=== PATIENT | male | born 1995 ===

== ENCOUNTER 2016-10-21 11:27 | Day surgery (SDC) | payer BC ==
--- NOTE | ~2016-10-21 | OP ---
Record Of Operation [facility] [address] [place]. [address] NAME: VEE ARELLANO : 89 STATUS : REG [facility]#: [id number] AGE: 21 ADM/REG DATE : 10/21/16 MR#: [id number] REPORT SERV DATE: 10/21/16 DICTATED BY: ERIK GRIFFIN III DATE: 10/21/16 REPORT STATUS : Draft TRANSCRIBED BY: MODL DATE: 10/21/16 DATE OF PROCEDURE: 10/21/2016 PREOPERATIVE DIAGNOSIS: Displaced bucket-handle tear, medial meniscus, right knee. POSTOPERATIVE DIAGNOSIS: Displaced bucket-handle tear, medial meniscus, right knee. SURGICAL PROCEDURE PERFORMED: Arthroscopic repair of displaced bucket-handle tear, medial meniscus, right knee using the Omnispan suture anchor x2. SURGEON: Erik Griffin M.D. FLAME BURNER: Erik Lopez. ANESTHESIA: General. ANTIBIOTICS: Ancef 2 g. COMPLICATIONS: None. TOURNIQUET TIME: 31 minutes. PROCEDURE IN DETAIL: The patient was brought to the operative room, placed on the table in supine position. And general anesthesia was induced. Ancef 2 g was administered intravenously in the preop holding area. Pneumatic tourniquet was applied to right upper thigh along with the arthroscopic leg wisdom. Right lower extremity was prepped and draped in the usual sterile fashion. It was exsanguinated with a 6-inch Esmarch. Tourniquet was inflated to 350 mmHg. Assuring good anesthesia, a standard anterolateral portal was provided. The arthroscope was inserted. The knee was inflated with sterile normal saline by means of the arthroscopic pump. Suprapatellar pouch was visualized, it was free of any loose bodies. Patellofemoral joint was in pristine condition. Medial and lateral gutters were normal. The intercondylar notch revealed a displaced bucket-handle tear of the medial meniscus within the intercondylar notch in line anterior to the medial femoral condyle. Abundant fat pad was debrided through a standard anteromedial portal with a 4.5 shaver. The lateral compartment revealed normal lateral meniscus, lateral femoral condyle, and lateral tibial plateau. Meniscus probe was used to reduce the displaced bucket-handle tear posterior to the medial femoral condyle. The reduction looked anatomic and very healthy, and it was elected to repair the torn meniscus. A 12 degree Omnispan was used to deploy two anchors in the posterior horn of the medial meniscus, and this was tightened and then cut with the Omnispan suture cutter. The arthroscope was then placed in the anteromedial portal and a second Omnispan was placed to the anterolateral portal in the mid one-third of the medial meniscus. Two anchors were deployed, it was tightened, and again the suture was cut with the suture cutter device. The meniscus was probed and felt to be very stable, and very healthy, and with very good. No further pathology was appreciated. There was no damage to the medial femoral condyle or the medial tibial plateau. Thorough irrigation was carried out. Instrumentation was removed. Portals were closed with 4-0 nylon. The knee was Record Of Operation [address] [address] NAME: VEE ARELLANO : 89 STATUS : REG [facility] PAT#: [id number] AGE: 21 ADM/REG DATE : 10/21/16 MR#: [id number] REPORT SERV DATE: 10/21/16 DICTATED BY: ERIK GRIFFIN III DATE: 10/21/16 REPORT STATUS : Draft TRANSCRIBED BY: KONRAD DATE: 10/21/16 injected with 30 mL of 0.5% Marcaine solution plain. Sterile dressings were applied, followed by a hinged knee brace set on 0 to 45 degrees. The patient will be 50% weightbearing on crutches. Follow up in 10 days. ANNA/KONRAD Erik Griffin III, M.D. / [id number] CC: Erik Griffin III, M.D.
== END 2016-10-21 23:59 | disposition home or self-care (01) ==
LOC: MSC 11:27
PROVIDERS: Orthopaedic Surgery
PROC: 0SBC4ZZ Excision of Right Knee Joint, Percutaneous Endoscopic Approach (ICD-10-PCS; principal; 2016-10-21 14:00)
DX: S83.211A Bucket-handle tear of medial meniscus, current injury, right knee, initial encounter (principal); Z90.89 Acquired absence of other organs
CPT/HCPCS: A9270-GY; J0690; J1170; J1885; J2250; J2405; J3010